=== PATIENT | female | born 1960 | race Caucasian/White ===

== ENCOUNTER 2017-08-16 10:25 | Emergency (ER) | payer MEDICAID ==
[~2017-08-16] VITALS: Ht 154.9 cm; Wt 62.9 kg
[~2017-08-16 10:25] MED LIST: NO HOME MEDS
[2017-08-16] MEDS ORDERED: normal saline 1000ML IV soln IVB ONE ×2 (10:45)
[2017-08-16] MEDS ORDERED: ondansetron/PF 4mg/2ml inj IV ONE (10:45)
[2017-08-16 10:57] LABS: BASOPHILS % (AUTO) 0.6 % (0-1); EOSINOPHILS % (AUTO) 0.1 % (0-6); HEMATOCRIT 46.2 % (35.0-45.0); HEMOGLOBIN 15.6 g/dl (12.0-16.0); LYMPHOCYTES # (AUTO) 1.8 X10'3 (1.1-4.8); LYMPHOCYTES % (AUTO) 39.6 % (21-51); MEAN CORPUSCULAR HEMOGLOBIN 29.6 PG (27.0-31.0); MEAN CORPUSCULAR HGB CONC 33.7 % (33.0-36.5); MEAN CORPUSCULAR VOLUME 87.8 FL (78-98); MEAN PLATELET VOLUME 8.9 FL (7.4-10.4); MONOCYTES # (AUTO) 0.6 X10'3 (0-0.9); MONOCYTES % (AUTO) 12.6 % (2-12); NEUTROPHILS # (AUTO) 2.1 X10'3 (1.8-7.7); NEUTROPHILS % (AUTO) 47.1 % (42-75); PLATELET COUNT 173 X10'3 (140-440); RED BLOOD COUNT 5.26 X10'6 (4.20-5.60); RED CELL DISTRIBUTION WIDTH 14.6 % (11.5-14.5); WHITE BLOOD COUNT 4.5 X10'3 (4.5-11.0)
[2017-08-16 11:12] LABS: ALANINE AMINOTRANSFERASE 94 U/L (12-78); ALBUMIN 3.8 G/DL (3.4-5.0); ALKALINE PHOSPHATASE 104 IU/L (46-116); ANION GAP 13 (8-16); ASPARTATE AMINO TRANSFERASE 38 U/L (10-37); BILIRUBIN,TOTAL 0.4 MG/DL (0.1-1.0); BLOOD UREA NITROGEN 12 MG/DL (7-18); BUN/CREATININE RATIO 17.1 (6.6-38.0); CALCIUM 9.1 MG/DL (8.5-10.1); CHLORIDE 101 MMOL/L (99-107); GLUCOSE 111 MG/DL (70-104); POTASSIUM 3.8 MMOL/L (3.5-5.1); SODIUM 138 MMOL/L (135-145); TOTAL CARBON DIOXIDE 23.7 MMOL/L (24-32); TOTAL PROTEIN 7.8 G/DL (6.4-8.2); eGFR 86 ML/MIN
[2017-08-16] MEDS ORDERED: ONDA4TAB12 PO (11:17)
[2017-08-16 11:39] LABS: CLARITY,URINE SLIGHTLY CLOUDY (Clear); COLOR,URINE YELLOW (Yellow); GLUCOSE, URINE NEGATIVE (Neg); KETONES,URINE NEGATIVE (Neg); LEUKOCYTE ESTERASE ,URINE NEGATIVE (Neg); NITRITES, URINE NEGATIVE (Neg); OCCULT BLOOD,URINE NEGATIVE (Neg); PROTEIN,URINE NEGATIVE (Neg); UROBILINOGEN,URINE 0.2 E.U/dL (0.2-1.0)
[2017-08-16 11:41] LABS: UA COLLECTION TYPE CLN CATCH MIDSTREAM
[2017-08-16 11:47] LABS: BACTERIA,URINE 1+ /HPF (Neg); MUCUS STRANDS MODERATE /LPF (Neg); RBC,URINE NONE SEEN /HPF (0-2); SQUAMOUS EPITHELIAL CELL,UR MODERATE /LPF (FEW); WBC,URINE 0-4 /HPF (0-4)
[2017-08-16 11:53] VITALS: BP 117/65
== END 2017-08-16 12:00 | disposition home or self-care (01) ==
LOC: ER 10:26
DX: R10.84 Generalized abdominal pain (principal); R11.2 Nausea with vomiting, unspecified; R19.7 Diarrhea, unspecified; G89.29 Other chronic pain; Z90.49 Acquired absence of other specified parts of digestive tract; Z56.0 Unemployment, unspecified
CPT/HCPCS: 36415; 80053; 81001; 85025; 96361; 96374; 99284; J2405; J7030

== ENCOUNTER 2019-10-28 05:46 | Inpatient (IN) | payer MEDICAID ==
[~2019-10-28] VITALS: Ht 154.9 cm; Wt 62.7 kg
[~2019-10-28 05:46] MED LIST changes: +ONDA4TAB12 PO
[2019-10-28 07:00] LABS: BASOPHILS # (AUTO) 0.1 X10'3 (0-0.2); BASOPHILS % (AUTO) 0.8 % (0-1); EOSINOPHILS # (AUTO) 0.1 X10'3 (0-0.9); EOSINOPHILS % (AUTO) 1.3 % (0-6); HEMATOCRIT 46.1 % (35.0-45.0); HEMOGLOBIN 15.3 g/dl (12.0-16.0); LYMPHOCYTES # (AUTO) 2.3 X10'3 (1.1-4.8); LYMPHOCYTES % (AUTO) 26.5 % (21-51); MEAN CORPUSCULAR HEMOGLOBIN 30.1 PG (27.0-31.0); MEAN CORPUSCULAR HGB CONC 33.3 g/dL (33.0-36.5); MEAN CORPUSCULAR VOLUME 90.5 FL (78-98); MEAN PLATELET VOLUME 8.6 FL (7.4-10.4); MONOCYTES # (AUTO) 0.9 X10'3 (0-0.9); NEUTROPHILS # (AUTO) 5.2 X10'3 (1.8-7.7); NEUTROPHILS % (AUTO) 61.4 % (42-75); PLATELET COUNT 265 X10'3 (140-440); RED BLOOD COUNT 5.09 X10'6 (4.20-5.60); RED CELL DISTRIBUTION WIDTH 14.6 % (11.5-14.5); WHITE BLOOD COUNT 8.5 X10'3 (4.5-11.0)
[2019-10-28 07:24] LABS: ALANINE AMINOTRANSFERASE 62 U/L (12-78); ALBUMIN 3.6 G/DL (3.4-5.0); ALKALINE PHOSPHATASE 101 IU/L (46-116); ANION GAP 10 (8-16); ASPARTATE AMINO TRANSFERASE 25 U/L (10-37); BILIRUBIN,TOTAL 0.3 MG/DL (0.1-1.0); BLOOD UREA NITROGEN 12 MG/DL (7-18); BUN/CREATININE RATIO 16.4 (6.6-38.0); CALCIUM 8.7 MG/DL (8.5-10.1); CHLORIDE 107 MMOL/L (99-107); CREATININE 0.73 MG/DL (0.40-0.90); GLUCOSE 101 MG/DL (70-104); POTASSIUM 4.2 MMOL/L (3.5-5.1); SODIUM 141 MMOL/L (135-145); TOTAL PROTEIN 7.2 G/DL (6.4-8.2); eGFR 81 ML/MIN
--- NOTE | 2019-10-28 07:27 | NUR ---
COVID 19 TEST DONE. RE DRAW OF LABS. PT GIVEN BLANKET NO NEED AT THIS TIME
[2019-10-28] MEDS ORDERED: nitroGLYCERIN 0.4mg SUBLingual tab SL PRN ×2 (08:35)
[2019-10-28] MEDS ORDERED: ondansetron/PF 4mg/2ml inj IV PRN (08:35)
[2019-10-28] MEDS ORDERED: regadenoson 0.4mg/5ml syringe IV ONE (08:35)
[2019-10-28] MEDS ORDERED: HYDROcodone/acetaminophen 5mg/325mg tablet PO PRN (08:35)
[2019-10-28] MEDS ORDERED: mag hydrox/Alum hydrox/simeth 30ml oral suspension PO PRN (08:35)
[2019-10-28] MEDS ORDERED: aminophylline 250mg/10ml inj. IV PRN (08:35)
[2019-10-28] MEDS ORDERED: morphine 2 MG/ML inj. syringe IV PRN ×2 (08:35)
[2019-10-28] MEDS ORDERED: magnesium hydroxide 30ml (MOM) UD suspension PO PRN (08:35)
[2019-10-28] MEDS ORDERED: metoprolol tartrate 1mg/ml inj IV PRN (08:35)
[2019-10-28] MEDS ORDERED: acetaminophen 325mg tablet PO PRN ×2 (08:35)
--- NOTE | 2019-10-28 09:30 | NUR ---
ATTEMPTED TO CALL REPORT TO PCU. ON HOLD FOR 8MIN
--- NOTE | 2019-10-28 09:57 | NUR ---
ATTEMPTED TO CALL REPORT AGAIN. WAS INFORMED RN WAS "GIVING A MED" AND WILL CALL BACK IN 5MIN. ANALILIA SIBLEY NOTIFIED
[2019-10-28] MEDS: ketorolac trometh. 30mg/ml inj. IV PRN ×2 (10:44→21:56)
[2019-10-28 11:00] VITALS: BP 107/60
[2019-10-28 15:00] VITALS: BP 124/66
--- NOTE | 2019-10-28 18:30 | NUR ---
Patient in room PCU [id number]. I have received report from Adwoa BROCK and had the opportunity to ask questions and assume patient care.
--- NOTE | 2019-10-28 18:45 | NUR ---
Problems reprioritized. Patient report given, questions answered & plan of care reviewed with Marina BROCK.
[2019-10-29] VITALS (7 sets, daily range): BP systolic 111–125; BP diastolic 63–70
[2019-10-29] MEDS ORDERED: regadenoson 0.4mg/5ml syringe IV ONE (05:30)
[2019-10-29] MEDS ORDERED: aminophylline 250mg/10ml inj. IV PRN (05:30)
[2019-10-29 06:02] LABS: CHOL/HDL RATIO 3.2 (0.00-4.99); CHOLESTEROL 174 MG/DL (0-200); HDL CHOLESTEROL 54 MG/DL (35-60); LDL CHOLESTEROL 100 MG/DL (50-100); TRIGLYCERIDES 77 MG/DL (20-135)
[2019-10-29] MEDS: ketorolac trometh. 30mg/ml inj. IV PRN (06:18)
--- NOTE | 2019-10-29 06:23 | NUR ---
Problems reprioritized. Patient report given, questions answered & plan of care reviewed with LEIALNI BROCK.
[2019-10-29] MEDS ORDERED: aspirin 81mg tablet.DR PO SCH (08:00)
[2019-10-29] MEDS ORDERED: pneumococcal 23-VAL P-sac vacc 25 mcg/0.5ml vial IMVAC ONE (10:00)
== END 2019-10-29 13:17 | disposition home or self-care (01) | DRG 207 ==
LOC: ER 05:47 → ED HOLD 08:32 → OBSVTOIN 10:20 → PCU 3S 10:51
PROVIDERS: ADMIT Internal Medicine; ATTEND Internal Medicine
PROC: 4A02XM4 Measurement of Cardiac Total Activity, External Approach (ICD-10-PCS; principal; 2019-10-29)
PROC: 3E033HZ Introduction of Radioactive Substance into Peripheral Vein, Percutaneous Approach (ICD-10-PCS; 2019-10-29)
PROC: 3E0234Z Introduction of Serum, Toxoid and Vaccine into Muscle, Percutaneous Approach (ICD-10-PCS; 2019-10-29)
DX: I30.8 Other forms of acute pericarditis (principal); G89.29 Other chronic pain; Z87.891 Personal history of nicotine dependence; M54.9 Dorsalgia, unspecified; Z90.49 Acquired absence of other specified parts of digestive tract; Z23 Encounter for immunization; Z20.828 Contact with and (suspected) exposure to other viral communicable diseases
CPT/HCPCS: 36415; 71045; 78452; 80053; 80061; 83036; 83880; 84145; 84484; 85025; 85379; 85651; 87081; 87635; 90732; 93005; 93017; 93306; 99285; A9500; G0378; J1885; J2785